=== PATIENT | female | born 1935 | race Caucasian/White ===

== ENCOUNTER → 2020-08-13 | Outpatient (CLI) | payer MEDICARE ==
[~2020-08-13] MED LIST: ASPIRIN 325MG325 MG PO; COZAAR100 MG PO; HYDROCHLOROTH12.5 MG PO; LOPRESSOR 25 MG25 MG PO; NORVASC 5 MG TAB5 MG PO; PRAVACHOL20 MG PO
== END ==
LOC: ECHO 10:00
DX: R42 Dizziness and giddiness (principal); I08.3 Combined rheumatic disorders of mitral, aortic and tricuspid valves; R93.1 Abnormal findings on diagnostic imaging of heart and coronary circulation
CPT/HCPCS: ECHO; 93306

== ENCOUNTER 2021-12-28 12:12 | Inpatient (IN) | payer MEDICARE ==
[~2021-12-28] VITALS: Ht 170.2 cm; Wt 63.5 kg
[~2021-12-28 12:12] MED LIST changes: -COZAAR100 MG PO; -PRAVACHOL20 MG PO
[2021-12-28 18:07] LABS: HEMOGLOBIN 13.2 gm/dl (12.3-15.3); RED BLOOD COUNT 4.97 M/UL (4.00-5.10); WHITE BLOOD COUNT 11.3 K/UL (4.5-11.0)
[2021-12-28 18:38] LABS: BUN/CREATININE RATIO 22 (0-10)
[2021-12-29 07:15] LABS: BUN/CREATININE RATIO 22 (0-10)
[2021-12-29] MEDS ORDERED: LOSARTAN POTAS100 MG PO (09:16)
[2021-12-29] MEDS ORDERED: PRAVASTATIN SOD20 MG PO (09:17)
[2021-12-29] MEDS ORDERED: METOPROLOL SUCC25 MG PO (13:45)
[2021-12-29] MEDS ORDERED: DONEPEZIL HCL5 MG PO (13:49)
[2021-12-29] MEDS ORDERED: ASPIRIN EC81 MG PO (13:51)
[2021-12-29] MEDS ORDERED: VITAMIN D325 MCG PO (14:49)
[2021-12-29] MEDS ORDERED: VITAMIN B-122500 MCG PO (14:50)
[2021-12-29] MEDS ORDERED: ZYRTEC10 MG PO (14:51)
[2021-12-30 05:54] LABS: HEMOGLOBIN 11.7 gm/dl (12.3-15.3)
[2021-12-30 05:55] LABS: RED BLOOD COUNT 4.44 M/UL (4.00-5.10); WHITE BLOOD COUNT 8.4 K/UL (4.5-11.0)
[2021-12-30 06:38] LABS: BUN/CREATININE RATIO 21 (0-10)
[2021-12-31 06:57] LABS: HEMOGLOBIN 11.5 gm/dl (12.3-15.3); RED BLOOD COUNT 4.35 M/UL (4.00-5.10); WHITE BLOOD COUNT 7.5 K/UL (4.5-11.0)
[2021-12-31 07:12] LABS: BUN/CREATININE RATIO 24 (0-10)
--- NOTE | 2021-12-31 22:55 | NUR ---
I HAD TO NOTIFY PATIENTS FAMILY MEMBER TO COME SIT WITH THE PATIENT. PATIENT HAS PULLED OUT HER IV AND IS DISORIENTED. I RE-ORIENT THE PATIENT AND EDUATE HER ON FALLS WHEN SHE GETS OUT OF BED.
[2022-01-01 06:19] LABS: HEMOGLOBIN 11.4 gm/dl (12.3-15.3); RED BLOOD COUNT 4.34 M/UL (4.00-5.10); WHITE BLOOD COUNT 8.8 K/UL (4.5-11.0)
[2022-01-01 06:39] LABS: BUN/CREATININE RATIO 25 (0-10)
[2022-01-01] MEDS ORDERED: AMOX TR-K CLV1 EAC4 PO (10:05)
[2022-01-01] MEDS ORDERED: IBUPROFEN600 MG PO (10:05)
[2022-01-01] MEDS ORDERED: METHOCARBAMOL500 MG PO (10:05)
[2022-01-01] MEDS ORDERED: TYLENOL EXTRA500 MG PO (10:05)
== END 2022-01-01 13:52 | disposition home or self-care (01) | DRG 689 ==
LOC: ER1 12:12 → MED SURG 4 21:32 → CDU 21:32 → MED SURG 4 21:32
PROVIDERS: Emergency Medicine; Internal Medicine; ADMIT Internal Medicine
DX: N39.0 Urinary tract infection, site not specified (principal); G93.41 Metabolic encephalopathy; E44.0 Moderate protein-calorie malnutrition; Z20.822 Contact with and (suspected) exposure to COVID-19; F03.90 Unspecified dementia, unspecified severity, without behavioral disturbance, psychotic disturbance, mood disturbance, and anxiety; H70.91 Unspecified mastoiditis, right ear; M54.2 Cervicalgia; E86.0 Dehydration; I10 Essential (primary) hypertension; E78.5 Hyperlipidemia, unspecified; D72.829 Elevated white blood cell count, unspecified; E11.9 Type 2 diabetes mellitus without complications; Z83.3 Family history of diabetes mellitus; Z68.27 Body mass index [BMI] 27.0-27.9, adult
CPT/HCPCS: 36415; 70450; 71045; 72125; 80048; 80053; 81001; 82550; 82553; 82607; 82746; 82962; 83605; 83735; 84100; 84439; 84443; 84484; 84550; 85025; 85027; 86140; 87040; 87086; 93005; 96372; 96374; 96375; 96376; 97116; 97116-GP-CQ; 97162; 97166; 97530; 99285; G0378; J0696; J1650; J1885; U0002